=== PATIENT | female | born 1995 | race Caucasian/White ===

== ENCOUNTER 2019-11-07 10:58 | Outpatient (RCR) | payer BC, SELFPAY ==
[2019-10-28 11:18] VITALS: BP 113/78; PULSE 93
== END 2019-12-09 07:28 | disposition home or self-care (01) ==
LOC: ANHOBOP 10:58
PROVIDERS: Visit Provider Obstetrics & Gynecology
DX: O36.5930 Maternal care for other known or suspected poor fetal growth, third trimester, not applicable or unspecified (principal); Z3A.34 34 weeks gestation of pregnancy; Z3A.35 35 weeks gestation of pregnancy; Z3A.36 36 weeks gestation of pregnancy
CPT/HCPCS: 59025

== ENCOUNTER 2019-11-11 11:33 | Outpatient (CLI) | payer BC, SELFPAY ==
[2019-11-11 11:56] VITALS: BP 129/89; PULSE 89
[2019-11-11 12:00] VITALS: BP 128/80; PULSE 78
[2019-11-11 12:05] LABS: Basophils Percent Auto 0.4 % (0.2-1.2); Eosinophils Absolute Auto 0.1 K/mm3 (0-0.3); Eosinophils Percent Auto 1.1 % (0-4.4); Hematocrit 38.3 % (37.0-47.0); Hemoglobin 13.2 g/dL (12.0-15.0); Immature Granulocyte Absolute 0.04 K/mm3 (0.00-0.031); Immature Granulocyte Percent A 0.4 % (0-0.5); Lymphocytes Absolute Auto 1.14 K/mm3 (0.9-3.2); Lymphocytes Percent Auto 12.8 % (18.3-44.2); Mean Corpuscular HGB Conc 34.5 g/dl (32-36); Mean Corpuscular Volume 95.8 fl (80-100); Mean Platelet Volume 11.2 fl (7.4-10.4); Monocytes Absolute Auto 0.6 K/mm3 (0.1-0.6); Monocytes Percent Auto 7.2 % (2.6-8.5); Neutrophils Percent Auto 78.1 % (45.5-73.1); Platelet Count Result 221 k/mm3 (150-375); White Blood Count 8.9 K/mm3 (4.5-10.0)
[2019-11-11 12:11] LABS: Add Urine Microscopic? YES; Appearance Urine Clear (Clear); Bacteria Urine Trace /hpf; Bilirubin Urine Negative (Negative); Blood Urine Negative (Negative); Color Urine Straw (Yellow); Glucose Urine UA Negative (Negative); Ketones Urine Negative (Negative); Leukocyte Esterase Ur Negative LEU/UL (NEGATIVE); Mucus Urine Rare /lpf; Nitrate Urine Negative (Negative); Protein Urine Negative (Negative); RBC Urine 0-2 /hpf (0-2); Specific Grav Ur 1.016 (1.001-1.035); Squamous Epithelial Cell Urine Few /hpf (Few); Urobilinogen Urine Negative mg/dL (<2.0); WBC Urine 0-3 /hpf (0-3)
[2019-11-11 12:14] LABS: Creatinine Urine 74.6 mg/dL; Total Protein Urine Random 11 mg/dL
[2019-11-11 12:15] VITALS: BP 125/87; PULSE 87
[2019-11-11 12:17] LABS: Alanine Aminotransferase 36 U/L (4-35); Albumin Level 3.9 g/dL (3.5-5.1); Alkaline Phosphatase 162 U/L (38-126); Aspartate Amino Transferase 43 U/L (14-36); Bilirubin,Total 0.3 mg/dL (0.2-1.3); Blood Urea Nitrogen 12 mg/dL (7-17); Calcium 9.3 mg/dL (8.4-10.2); Carbon Dioxide 23 mmol/L (22-30); Chloride 103 mmol/L (98-107); Estimated Glomerular Filt Rate > 60; Glucose 63 mg/dL (65-105); Potassium 4.3 mmol/L (3.4-5.0); Sodium 133 mmol/L (137-145); Uric Acid 4.9 mg/dL (2.5-7.5)
[2019-11-11 12:43] VITALS: BP 125/87; PULSE 85
--- NOTE | 2019-11-11 12:50 | PC.NURSE ---
Dr English at bedside talking to patient. Plans for IOL on Thursday as planned.
== END 2019-11-11 12:50 | disposition home or self-care (01) ==
LOC: ANHOBOP 11:35 → ANHOBPP 11:44
PROVIDERS: Visit Provider Obstetrics & Gynecology
DX: O13.9 Gestational [pregnancy-induced] hypertension without significant proteinuria, unspecified trimester (principal); Z3A.00 Weeks of gestation of pregnancy not specified
CPT/HCPCS: 36415; 59025; 80053; 81001; 82570; 84156; 84550; 85025; 87086; 99199

== ENCOUNTER 2019-11-15 05:00 | Inpatient (IN) | payer BC, SELFPAY ==
[2019-11-15] VITALS (102 sets, daily range): BP systolic 95–152; BP diastolic 53–103; PULSE 61–126; RESP 18; TEMP 35.8–37; O2SAT 99–100
[2019-11-15 06:03] LABS: Basophils Percent Auto 0.4 % (0.2-1.2); Eosinophils Absolute Auto 0.2 K/mm3 (0-0.3); Eosinophils Percent Auto 2.6 % (0-4.4); Hematocrit 37.1 % (37.0-47.0); Hemoglobin 12.9 g/dL (12.0-15.0); Immature Granulocyte Absolute 0.04 K/mm3 (0.00-0.031); Immature Granulocyte Percent A 0.5 % (0-0.5); Lymphocytes Absolute Auto 1.35 K/mm3 (0.9-3.2); Lymphocytes Percent Auto 16.7 % (18.3-44.2); Mean Corpuscular HGB Conc 34.8 g/dl (32-36); Mean Corpuscular Hemoglobin 32.9 pg (26-34); Mean Corpuscular Volume 94.6 fl (80-100); Mean Platelet Volume 11.4 fl (7.4-10.4); Monocytes Absolute Auto 0.7 K/mm3 (0.1-0.6); Monocytes Percent Auto 8.8 % (2.6-8.5); Neutrophils Absolute Auto 5.7 K/mm3 (1.3-6.7); Platelet Count Result 215 k/mm3 (150-375); Red Blood Count 3.92 M/mm3 (4.2-5.4); White Blood Count 8.1 K/mm3 (4.5-10.0)
[2019-11-15 06:09] LABS: Uric Acid 4.9 mg/dL (2.5-7.5)
--- NOTE | 2019-11-15 06:20 | LDADM ---
This patient, Monica Ritchie, was admitted to Labor/Delivery/Recovery 104 on 11/15/19 at 05:00. Plans for labor, pain management and were discussed with patient. Patient/family oriented to hospital policies and general routines including ID bracelet, bed and alarms, visiting hours, pain management, procedures, bathroom and other care routines, personal items, smoking policy, room service/diet and guest tray routines, infant security routines, and visiting hours. Patient/Family are encouraged to report perceived risks to care and to ask questions if they do not understand what they are told or what they should do. See OBIX for further documentation.
--- NOTE | 2019-11-15 07:00 | PM.IMHP ---
H&P: HPI History of Present Illness Chief complaint: Induction Narrative: Monica Ritchie is a 24 yo @ 37.3wks who presents for IOL 2/2 IUGR w/ h/o elevated dopplers Her has also been complicated by IUI, and at least gestational HTN (r/o PEC). Today she reports being nervous; good movement, irregular contractions. No bleeding/leakage of fluid. Review of Systems Constitutional: Constitutional: Denies body ache(s) and Denies chills Eyes: Eyes: Denies blurry vision ENT: Denies nasal congestion Cardiovascular: Cardiovascular: Denies chest pain, Denies lightheadedness and Denies palpitations Respiratory: Respiratory: Denies cough and Denies dyspnea Gastrointestinal: Gastrointestinal: Denies nausea and Denies vomiting Genitourinary: Comments: no bleeding or leakage of fluid Neurologic: Denies headache(s) Psychiatric: Psychiatric: Denies anxiety [facility] Family History Family History Father Hypertension Grandparent Hypertension Social History Social History Smoking status: Never smoker Substance use: never Spiritual care concerns: No Meds Home Medications and Allergies Home Medications Medication Instructions Recorded Confirmed Type PNV cmb#95-ferrous fumarate-FA 1 tablet PO DAILY 10/28/19 10/28/19 History [] ferrous sulfate 325 mg PO DAILY 10/28/19 10/28/19 History Allergies Allergy/AdvReac Type Severity Reaction Status Date / Time No Known Allergies Allergy Verified 11/11/19 12:23 Vital Signs Vital Signs - 24 hr 11/15/19 05:22 11/15/19 05:31 11/15/19 05:46 Pulse Rate 99 91 96 Blood Pressure 136/92 H 131/90 124/91 H 11/15/19 06:01 11/15/19 06:16 Pulse Rate 89 88 Blood Pressure 133/95 H 118/62 Exam Const: General: comfortable and no acute distress Resp: Effort & Inspection: normal respiratory effort Cardio: Rate: regular rate GI: GI Palp: Yes Soft to palpation : Other: FHTs: 130/ mod thea/ + accels/ no decels - cat 1 TOCO: irregular ctx's q 4-5min Membranes: AROM, clear @ 0715 Cervix: 4/80/-1 Skin: General skin exam: normal color Neuro: Speech: normal speech Psych: Affect: normal affect H&P: Results Labs Labs: Short CBC 11/15/19 Range/Units 05:49 WBC 8.1 (4.5-10.0) K/mm3 Hgb 12.9 (12.0-15.0) g/dL Hct 37.1 (37.0-47.0) % Plt Count 215 (150-375) k/mm3 Assessment and Plan Assessment and plan (1) IUGR (intrauterine growth restriction): Status: Acute (2) Elevated blood pressure affecting , antepartum: Code(s): O16.9 - Unspecified maternal hypertension, unspecified trimester Status: Acute Additional Plan Monica is a 24yo @ 37.3 admitted for augmentation of IUGR w/ elevated dopplers and gHTN (r/o PEC) - Admit to L&D for augmentation - Cervix favorable; will start pitocin - AROM, clear 0715 - GBS negative; no need for PPX - Will monitor BP's closely; repeat PIH labs pending-- pt asymptomatic and BP's in mild range-- meets criteria of at least gestational HTN - FHT's reassuring; continuous monitoring
[2019-11-15] MEDS: OXYTOCIN 30 UNITS/NS 500 ML 30 UNITS/500 ML BAG 6 UNITS IV CONT ×2 (07:21→14:54)
[2019-11-15] MEDS: LACTATED RINGERS 1,000 ML 125 ML IV CONT ×2 (07:21→09:14)
--- NOTE | 2019-11-15 09:05 | WPDANESEPPF ---
Anes - Initial Pre Proc Eval Date/Time: 11/15/19 09:05 Surgeon: Cindi English MD Pre Op Diagnosis: Induction Patient Data Age: 24 Gender: F Height: Weight: Last Vital Signs Pulse 85 11/15/19 09:01 BP 131/75 11/15/19 09:01 Allergies Allergy/AdvReac Type Severity Reaction Status Date / Time No Known Allergies Allergy Verified 11/11/19 12:23 Home Medications Medication Instructions Recorded Confirmed Type PNV cmb#95-ferrous fumarate-FA 1 tablet PO DAILY 10/28/19 10/28/19 History [] ferrous sulfate 325 mg PO DAILY 10/28/19 10/28/19 History Laboratory Tests 11/15/19 11/15/19 11/15/19 05:49 05:49 05:49 WBC 8.1 K/mm3 K/mm3 (4.5-10.0) RBC 3.92 M/mm3 L M/mm3 (4.2-5.4) Hgb 12.9 g/dL g/dL (12.0-15.0) Hct 37.1 % % (37.0-47.0) MCV 94.6 fl fl (80-100) MCH 32.9 pg pg (26-34) MCHC 34.8 g/dl g/dl (32-36) RDW 12.0 % % (11.5-14.5) Plt Count 215 k/mm3 k/mm3 (150-375) MPV 11.4 fl H fl (7.4-10.4) Immature Gran % (Auto) 0.5 % % (0-0.5) Neut % (Auto) 71.0 % % (45.5-73.1) Lymph % (Auto) 16.7 % L % (18.3-44.2) Meagher % (Auto) 8.8 % H % (2.6-8.5) Eos % (Auto) 2.6 % % (0-4.4) Baso % (Auto) 0.4 % % (0.2-1.2) Lymph # (Auto) 1.35 K/mm3 K/mm3 (0.9-3.2) Meagher # (Auto) 0.7 K/mm3 H K/mm3 (0.1-0.6) Eos # (Auto) 0.2 K/mm3 K/mm3 (0-0.3) Baso # (Auto) 0.0 K/mm3 K/mm3 (0.0-0.1) Abs Immat Gran (auto) 0.04 K/mm3 H K/mm3 (0.00-0.031) Absolute Neuts (auto) 5.7 K/mm3 K/mm3 (1.3-6.7) Absolute Nucleated RBC 0.0 K/mm3 K/mm3 (0.0-0.012) Nucleated RBC % 0.0 % % (0.0-0.2) Uric Acid 4.9 mg/dL mg/dL (2.5-7.5) RPR Pending Blood Type Antibody Screen 11/15/19 05:49 WBC RBC Hgb Hct MCV MCH MCHC RDW Plt Count MPV Immature Gran % (Auto) Neut % (Auto) Lymph % (Auto) Meagher % (Auto) Eos % (Auto) Baso % (Auto) Lymph # (Auto) Meagher # (Auto) Eos # (Auto) Baso # (Auto) Abs Immat Gran (auto) Absolute Neuts (auto) Absolute Nucleated RBC Nucleated RBC % Uric Acid RPR Blood Type A Positive Antibody Screen Negative Patient hx anesthesia problems: none Family hx anesthesia problems: none [facility] Family History Family History Father Hypertension Grandparent Hypertension Social History Social History Smoking status: Never smoker Substance use: never Spiritual care concerns: No Anes - Eval Final PreProcedure Day of Procedure 11/15/19 09:05 Heart: regular rate and rhythm Lungs: clear to auscultation and normal air movement Airway: Mallampati scale class II Neurological: alert and oriented Last oral intake: >/= 8 hours ASA classification: II Emergent: no Anesthetic plan: proceed Anesthesia type and monitoring: regional epidural Informed Consent: The patient's anesthetic plan and its attendant risks and benefits were discussed with the patient/family/POA. Questions were solicited and answers provided to the satisfaction of the patient/family/POA.
[2019-11-15 10:36] LABS: Rapid Plasma Reagin Non-Reactive (NonReactive)
[2019-11-15] MEDS: SODIUM CHLORIDE 0.9% IV 300 ML 600 ML I-UTERINE (12:42)
--- NOTE | 2019-11-15 13:56 | PM.OBPRVD ---
OB - Delivery Note Procedure Delivery date: 11/15/19 Procedure: Patient progressed to complete dilation. She had good maternal effort and delivered the head over intact perineum. The shoulders and body delivered without complications and the infant was immediately placed skin to skin. She delivered a female infant weighing 5lb 5oz, 17in long, apgars 8/8. The infant had spontaneous cry and the umbilical cord was clamped and cut. With gentle traction on the cord and pitocin running, the placenta delivered without complications. Bimanual exam was performed and the uterus became firm with massage. The vagina was examined and bilateral lilian-uretherals were noted. The right lilian-uretheral extended into the right labia minora. They were repaired using 3-0 Vicryl. A first degree perineal laceration was also noted and repaired using 2-0 Vicryl. A small perineal vericose vein was noted to have ruptured and pressure was held for approximately 10 minutes until no further bleeding was noted. The fundus was firm with little bleeding. The mother and baby were left in the birthing suite bonding skin to skin in a stable condition. events: Induced HTN Intrapartal events: None Delivery augmentation: rupture of membranes and pitocin Delivery monitor: external FHT and internal uterine Route of delivery: Laceration description: Periurethral - 2nd Degree (bilateral with the right involving the labia. She also had a first degree perineal laceration.) Delivery repair: vicryl Specimen: Yes (placenta and cord gases) Estimated blood loss (mL): 400 Anesthesia type: Epidural Disposition: floor Baby Date of : 11/15/19 Time of : 13:11 Weeks of gestation at delivery: 37 gender: Female Weight (pounds): 5 Weight (ounces): 5 presentation: vertex position: Right Occiput Anterior Placenta delivery description: Expressed cord vessel description: 3 Vessels and Nuchal Cord score one minute: 8 score five minutes: 8
[2019-11-15] MEDS: OXYTOCIN 30 UNITS/NS 500 ML 30 UNITS/500 ML BAG 125 UNITS IV CONT (14:55)
[2019-11-15 15:21] LABS: Alanine Aminotransferase 22 U/L (4-35); Albumin Level 3.4 g/dL (3.5-5.1); Alkaline Phosphatase 166 U/L (38-126); Aspartate Amino Transferase 32 U/L (14-36); Bilirubin,Total 0.4 mg/dL (0.2-1.3); Blood Urea Nitrogen 9 mg/dL (7-17); Calcium 8.7 mg/dL (8.4-10.2); Carbon Dioxide 23 mmol/L (22-30); Chloride 103 mmol/L (98-107); Estimated Glomerular Filt Rate > 60; Glucose 76 mg/dL (65-105); Potassium 4.1 mmol/L (3.4-5.0); Sodium 130 mmol/L (137-145)
[2019-11-15] MEDS: WITCH HAZEL 40 PADS 1 PAD TOPICAL (16:57)
[2019-11-15] MEDS: BENZOCAINE 20% AER SPR (*SP) 56 GM CAN 1 SPRAY TOPICAL (16:58)
--- NOTE | 2019-11-15 17:40 | PC.NURSE ---
Patient transferred to post room #[id number] via wheelchair. Support person present. Oriented to unit, room, information board, rooming in, admission packet and security measures. Patient verbalizes understanding.
[2019-11-15] MEDS: IBUPROFEN 600 MG TABLET PO (23:07)
[2019-11-16] MEDS: IBUPROFEN 600 MG TABLET PO ×2 (05:08→14:07)
[2019-11-16 05:40] LABS: Hematocrit 30.9 % (37.0-47.0); Hemoglobin 10.8 g/dL (12.0-15.0)
[2019-11-16 05:51] LABS: Alanine Aminotransferase 20 U/L (4-35); Albumin Level 2.8 g/dL (3.5-5.1); Alkaline Phosphatase 119 U/L (38-126); Aspartate Amino Transferase 33 U/L (14-36); Bilirubin,Total 0.3 mg/dL (0.2-1.3); Blood Urea Nitrogen 9 mg/dL (7-17); Calcium 8.6 mg/dL (8.4-10.2); Carbon Dioxide 25 mmol/L (22-30); Chloride 105 mmol/L (98-107); Estimated Glomerular Filt Rate > 60; Glucose 63 mg/dL (65-105); Potassium 3.9 mmol/L (3.4-5.0); Sodium 131 mmol/L (137-145)
[2019-11-16 08:45] VITALS: BP 130/76; PULSE 82; PULSE 85; RESP 18; TEMP 36.9; O2SAT 100
--- NOTE | 2019-11-16 08:45 | PC.NURSE ---
PT introductions made and plan of care discussed per post , pain management, breast feeding, daily care activities. PT verbalized understanding of such care.
[2019-11-16] MEDS: MULTIVIT/MIN/PREN/FOL AC/IRON TABLET 1 TAB PO (08:49)
[2019-11-16] MEDS: DOCUSATE SODIUM 100 MG CAPSULE PO ×2 (08:49→18:14)
[2019-11-16] MEDS: ACETAMINOPHEN 325 MG TABLET 650 MG PO ×2 (08:49→14:06)
[2019-11-16] MEDS: LANOLIN (LANSINOH) 7.5 GM CREAM 1 APPLIC TOPICAL (08:50)
--- NOTE | 2019-11-16 14:01 | PM.OBPNVD ---
OB - PN: Subj Subjective Date/time seen: 11/16/19 14:01 Monica is a 24yo now P1001 s/p @ 37wks. complicated by: IUGR w/ elevated dopplers, IUI, and gestional hypertension Today, Monica states she is doing well. Her pain is better controlled today. Her bleeding is also less. She is tolerating regular diet. She is voiding w/o issue. She is ambulating w/o s/sx of anemia. She is breast feeding w/o issue, Wandy is latching well. They would like to be discharged home today if possible. OB - PN: Obj Data Labs CBC & Chem 7: 11/16/19 05:05 11/16/19 05:05 Labs: Laboratory Results - last 24 hr 11/15/19 11/16/19 11/16/19 14:23 05:05 05:05 Hgb 10.8 L Hct 30.9 L Sodium 130 L 131 L Potassium 4.1 3.9 Chloride 103 105 Carbon Dioxide 23 25 BUN 9 9 Creatinine 0.50 L 0.60 L Estim Creat Clear Calc Not Reportable Not Reportable Estimated GFR > 60 > 60 Glucose 76 63 L Calcium 8.7 8.6 Total Bilirubin 0.4 0.3 AST 32 33 ALT 22 20 Alkaline Phosphatase 166 H 119 Total Protein 7.0 6.0 L Albumin 3.4 L 2.8 L OB - PN A/P Assessment and Plan (1) Vaginal delivery: Code(s): O80 - Encounter for full-term uncomplicated delivery Status: Acute (2) Gestational hypertension: Qualifiers: Trimester: third trimester Qualified Code(s): O13.3 - Gestational [-induced] hypertension without significant proteinuria, third trimester Code(s): O13.9 - Gestational [-induced] hypertension without significant proteinuria, unspecified trimester Status: Acute Plan day: 1 Comments: - Meeting all milestones - Pain meds PRN - Continue breast feeding - BP's in normal to mild range; labs normal; pt asymptomatic - plan to discharge home today if Wandy is also to be discharged home - Discharge instructions reviewed: pelvic rest x 6wks, take meds as prescribed, return precautions (n/v/pain, heavy bleeding, fever, or signs of HTN) - F/u in 1-2 wks for BP check Time Spent With Patient Time: Total time spent is greater than 50% in coordination of care (as documented) at patient's floor/unit and/or counseling patient: Review of Systems Constitutional: Constitutional: Denies chills Comments: no vision changes Cardiovascular: Cardiovascular: Denies rapid heart rate Respiratory: Respiratory: Denies cough and Denies dyspnea Gastrointestinal: Gastrointestinal: Denies nausea and Denies vomiting Genitourinary: Genitourinary: Reports pelvic pain Neurologic: Denies headache(s) Exam Const: General: comfortable, alert and awake Orientation/consciousness: patient oriented x3 Resp: Effort & Inspection: normal respiratory effort Auscultation: clear to auscultation bilaterally Cardio: Rate: regular rate GI: Auscultation: normal bowel sounds Other: soft, non-distended : Other: fundus firm below umbilicus Psych: Appearance: grossly normal Attitude: cooperative Judgement: Good judgement present (Psych)
[2019-11-16 19:45] VITALS: BP 130/89; PULSE 81; RESP 16; TEMP 36.8
--- NOTE | 2019-11-17 07:30 | PC.NURSE ---
PT introductions made and plan of care discussed per , pain management, breast feeding, daily care activities and pending discharge to home. PT verbalized understanding of such care.
[2019-11-17 08:05] VITALS: BP 116/76; PULSE 73; RESP 16; TEMP 37.7; O2SAT 100
[2019-11-17 09:45] VITALS: PULSE 73; RESP 16; O2SAT 100
[2019-11-17] MEDS: DOCUSATE SODIUM 100 MG CAPSULE PO (09:47)
[2019-11-17] MEDS: MULTIVIT/MIN/PREN/FOL AC/IRON TABLET 1 TAB PO (09:47)
[2019-11-17] MEDS: IBUPROFEN 600 MG TABLET PO (09:47)
--- NOTE | 2019-11-17 10:00 | PC.NURSE ---
Patient viewed the discharge video Mother & Baby Care, The First Two Weeks . Patient was given the opportunity and encouraged to ask questions. Patient verbalized understanding of information shared and has been given the mother/baby guide for home reference.
--- NOTE | 2019-11-17 11:30 | PC.NURSE ---
PT received discharge instructions per protocol and verbalized understanding of such instructions.
--- NOTE | 2019-11-17 11:58 | PC.NURSE ---
PT discharged to home ambulatory accompanied by spouse and to waiting car. Follow up appts confirmed
[2019-11-18 10:44] VITALS: BP 119/83; PULSE 92; RESP 16; TEMP 37.2; O2SAT 100
--- NOTE | 2019-11-28 09:58 | PM.OBDSVD ---
DS: Admitting Diagnosis Admitting Diagnosis Admitting Diagnosis: Encounter for supervision of normal , unspecified, third trimester DS: Discharge Diagnosis Discharge Diagnosis (1) Vaginal delivery: Code(s): O80 - Encounter for full-term uncomplicated delivery Status: Acute (2) Gestational hypertension: Qualifiers: Trimester: third trimester Qualified Code(s): O13.3 - Gestational [-induced] hypertension without significant proteinuria, third trimester Code(s): O13.9 - Gestational [-induced] hypertension without significant proteinuria, unspecified trimester Status: Acute OB - DS: Summary OB Procedures : NST OB Procedures Intrapartum: Other (none) OB Procedures: : None Peripartum Data Delivery Method: Natural Vaginal complications: other (Gestational HTN) 1: Gender: Female Disposition of : home Status at Discharge Functional status at discharge: independent ambulation Overall status at discharge: patient is back to baseline Time Spent with Patient Time attestation: Total time spent providing and/or coordinating discharge services: Exam Const: General: comfortable, no acute distress, alert and awake Orientation/consciousness: patient oriented x3 Resp: Effort & Inspection: normal respiratory effort Cardio: Rate: regular rate GI: Inspection: non-distended GI Palp: Yes Soft to palpation Auscultation: normal bowel sounds : Other: fundus firm below umbilicus; normal lochia Psych: Appearance: grossly normal Affect: normal affect Attitude: cooperative DS: Data Data Completed and Pending Completed studies during hospitalization: Pending at discharge 11/15/19 17:03 Surgical [PTH] Routine Discharge Plan Discharge Attending physician on discharge: Cindi English Consulting providers: Jack Santos Discharging Clinician: Cindi English Anticipated Discharge Date/Time: 11/17/19 12:00 Patient Disposition: Home, Self-Care Activity: pelvic rest Diet: regular Discharge Instructions: Education: Mom and Baby Guide Given to: Mother Follow-Up: Call your delivering provider's office for an appointment to be seen in: 1 Week Mom and baby should come to the [facility] for the follow-up appointment. Appointment Date/Time: November 18, 2019 at 10:00 am What to expect at your follow-up visit: Blood Pressure Check Call [phone] if you are unable to keep your appointment time. BREAST CARE: 1. Wear a snug supportive bra. 2. For engorgement discomfort: Breast Feeding: A. Apply warm moist washcloths B. Express milk as needed to relieve engorgement C. Wear loose clothing 3. For sore nipples: A. Identify correct latch-on B. Apply warm moist washcloths before and after nursing C. Air dry nipples after nursing D. May apply Lansinoh cream to nipples PERINEAL CARE: 1. Until bleeding stops, use your lilian bottle after urinating 2. Change your pad frequently throughout the day 3. You may take sitz baths several times a day (fill your bathtub with warm water and soak for 20 minutes.) Do NOT bathe in the water 4. No tub baths until seen by your physician - You may shower ACTIVITY: 1. Rest as much as possible. 2. Do not exercise or lift anything heavier than your baby (such as laundry or other children.) 3. Avoid stairs or driving as much as possible. 4. Do not put anything into the vagina. No douching, tampons, or sexual activity until seen by physician. NOTIFY PHYSICIAN IF YOU HAVE ANY QUESTIONS OR IF ANY OF THE FOLLOWING SYMPTOMS OCCUR: 1. If your perineum becomes red, swollen, or more painful than what you have experienced in the hospital. 2. If your vaginal bleeding becomes foul smelling. 3. If your vaginal bleeding becomes more heavy than a period or if your b
== END 2019-11-17 11:58 | disposition home or self-care (01) | DRG 807 ==
LOC: ANHLDR 05:06 → ANHOB2 18:09
PROVIDERS: Admitting Provider Obstetrics & Gynecology; PCP Internal Medicine; Visit Provider Obstetrics & Gynecology
DX: O36.5930 Maternal care for other known or suspected poor fetal growth, third trimester, not applicable or unspecified (principal); Z37.0 Single live birth; Z3A.37 37 weeks gestation of pregnancy; O13.4 Gestational [pregnancy-induced] hypertension without significant proteinuria, complicating childbirth; O70.1 Second degree perineal laceration during delivery
CPT/HCPCS: 36415; 80053; 84550; 85014; 85018; 85025; 86592; 86850; 86900; 86901; 88307; A9270; J2590; J2795; J7030; J7120